=== PATIENT | female | born 1975 | race Caucasian/White ===

== ENCOUNTER 2022-01-22 16:47 | Outpatient (CLI) | payer OTHER, SELFPAY ==
--- NOTE | ~2022-01-22 | US_ITS ---
EXAMINATION: US pelvic complete w TV DATE: 01/22/2022 17:51 INDICATION: Irregular heavy menstrual bleeding. Patient taking progesterone. Comparison:No prior studies for comparison. TECHNIQUE: Multiple transabdominal and endovaginal sonographic images of the pelvis performed. FINDINGS: The uterus measures 13.5 x 11.4 x 11.8 cm. There is a large uterine mass consistent with fi broid which distorts and obscures the endometrium. This mass measures 8.9 x 8.7 x 7.8 cm. The right ovary is not visualized. The left ovary is normal measuring 3.5 x 2.6 x 4.7 cm with normal vascularity. There is no free fluid in the pelvis. There are no abnormal masses seen on either side. IMPRESSION: 1. Enlarged fibroid uterus with 8.9 cm fibroid distorting and obscuring the endometrium. Reviewed, dictated and finalized at location A. IMPRESSION: 1. Enlarged fibroid uterus with 8.9 cm fibroid distorting and obscuring the end ometrium.
== END 2022-01-22 16:48 | disposition home or self-care (01) ==
PROVIDERS: Visit Provider Physician Assistant
DX: N92.0 Excessive and frequent menstruation with regular cycle (principal); D25.9 Leiomyoma of uterus, unspecified
CPT/HCPCS: 76830; 76856

== ENCOUNTER 2022-08-16 09:55 | Emergency (ER) | payer OTHER, SELFPAY ==
[2022-08-16 10:05] VITALS: BP 128/73; PULSE 80; RESP 16; TEMP 37; O2SAT 100
--- NOTE | 2022-08-16 10:42 | ED.URI ---
HPI - URI/Sore Throat General Chief Complaint: Upper Respiratory Infection Stated Complaint: covid sx Time Seen by Provider: 08/16/22 10:43 Source: patient and RN notes reviewed Mode of arrival: ambulatory Limitations: no limitations History of Present Illness HPI Narrative: 47 y/o female presented for c/o nasal congestion, body ache, sore throat, cough. Onset yesterday. Endorses mother was ill but does not know what she had. Patient rates discomfort/pain 9/10. Took ibuprofen this morning. Denies sob, wheezing, n/v/d/f/c. Requesting covid testing for school. MD elicited complaint: cough Related Data Home Medications Medication Instructions Recorded Confirmed acetaminophen 325 mg tablet mg 08/16/22 docusate sodium 100 mg capsule mg PO 08/16/22 ibuprofen 400 mg tablet mg 08/16/22 Allergies Allergy/AdvReac Type Severity Reaction Status Date / Time clindamycin Allergy Rash Verified 08/16/22 10:46 Review of Systems Review of Systems: ROS per HPI PMFSH Past Medical History Medical History Chronic back pain Surgical History Surgical History H/O laminectomy History of hysterectomy Social History Social History Gender identity (if verbalized by the patient): Female Exam Narrative: GENERAL: mildly ill-appearing, nontoxic EYES: PERRLA, conjunctivae clear ENT: Mucous membranes moist. TMs pearly kingsley with dull light reflex bilaterally; no tragal tenderness. Oropharynx erythematous with tonsillar swelling 2+ without lesions or exudate, no drooling, no hoarseness, no trismus, uvula midline. No tripod positioning, muffled voice, soft palate or pharyngeal wall bulging NECK: Supple. No lymphadenopathy CHEST: Clear to auscultation, breath sounds equal. HEART: Regular rate and rhythm. No murmur heard. SKIN: Warm, dry, no rash. NEURO: Alert and oriented x3. PSYCH: Normal mood and affect Course Course Emergency Course: Patient is aware of diagnosis, understands and agrees to treatment plan. Anticipatory guidance given. Patient agrees to follow-up as directed and is aware of reasons to seek care at the emergency department. Portions of this record may have been created with voice recognition software Level of Care: Express Care Visit Vital Signs Vital signs: Vital Signs Temperature 98.6 F 08/16/22 10:05 Pulse Rate 80 08/16/22 10:05 Respiratory Rate 16 08/16/22 10:05 Blood Pressure 128/73 08/16/22 10:05 Pulse Oximetry 100 08/16/22 10:05 Oxygen Delivery Room Air 08/16/22 10:05 Temperature 98.6 F 08/16/22 10:05 Pulse Rate 80 08/16/22 10:05 Respiratory Rate 16 08/16/22 10:05 Blood Pressure 128/73 08/16/22 10:05 Pulse Oximetry 100 08/16/22 10:05 Oxygen Delivery Room Air 08/16/22 10:05 reviewed MDM - URI/Sore Throat MDM Narrative Medical decision making narrative: COVID negative. Results reviewed with patient. She is aware that she may need to retest, as symptoms just started yesterday. Will send prescription for amoxicillin based on PE, patient states she is strapped financially, and declines strep testing today. Declines flu test. 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 Advised supportive measures and signs/symptoms to go to the ER. Pt is appropriate for outpt treatment and f/u. Differential Diagnosis Differential diagnosis: Likely upper respiratory infection, otitis media, sinusitis, viral infection, influenza and pharyngitis Lab Data Labs: Lab Results 08/16/22 Range/Units 10:30 POC SARS CoV-2 Ag Negative (Negative) Discharge Plan Discharge Clinical Impression: Upper respiratory infection Qualifiers: URI type: unspecified URI Qualified Code(s): J06.9 - Acute upper respiratory infection, unspecified Patient Disposition: Home, Self-Care Condit
== END 2022-08-16 11:00 | disposition home or self-care (01) ==
PROVIDERS: Emergency Provider Nurse Practitioner Family; PCP Physician Assistant
DX: J06.9 Acute upper respiratory infection, unspecified (principal); Z20.822 Contact with and (suspected) exposure to COVID-19
CPT/HCPCS: 87426; 99213; C9803; G0463

== ENCOUNTER 2022-12-09 14:40 | Outpatient (CLI) | payer OTHER, SELFPAY ==
--- NOTE | ~2022-12-09 | MM_ITS ---
EXAMINATION: MM screening arsalan BI w jose HISTORY: Screening mammogram TECHNIQUE: Craniocaudal and mediolateral oblique 3-D tomosynthesis images were obtained and synthetic 2-D images were generated. CAD analysis was submitted and interpreted. COMPARISON: No prior mammogram is available for comparison at this institution. BREAST PARENCHYMAL COMPOSITION: There are scattered areas of fibroglandular density. FINDINGS: There is no evidence of suspicious mass, calcification, or architectural distortion to sugg est malignancy in either breast. There has been no suspicious interval change. IMPRESSION: 1. No mammographic evidence of malignancy. 2. Recommend routine screening mammography in one year. BI-RADS Category 1: Negative Reviewed, dictated and finalized at location A.
== END 2022-12-09 14:41 | disposition home or self-care (01) ==
LOC: ANHIMG 14:42
PROVIDERS: PCP Physician Assistant; Visit Provider Physician Assistant
DX: Z12.31 Encounter for screening mammogram for malignant neoplasm of breast (principal)
CPT/HCPCS: 77063; 77067

== ENCOUNTER 2022-12-26 12:18 | Emergency (ER) | payer OTHER, SELFPAY ==
[2022-12-26 12:22] VITALS: BP 118/65; PULSE 76; RESP 17; TEMP 36.6; O2SAT 100
--- NOTE | 2022-12-26 13:19 | ED.BACK ---
HPI - Back Pain/Injury General Chief Complaint: Back Pain/Injury Stated Complaint: back pain Time Seen by Provider: 12/26/22 12:37 History of Present Illness HPI Narrative: 47-year-old female with history of back pain presented emerged department for evaluation of increased right hip and back pain. Patient states that she does get intermittent back injections for her pain and is due for a pain injection in a few weeks. Patient states she woke up she felt that her back was 20 to few days ago. Patient reports that she is having intermittent pain that radiates down both legs and was having some intermittent numbness associated with the pain. Patient denies any weakness of the right leg. Patient denies any loss of bowel or bladder control. Related Data Home Medications Medication Instructions Recorded Confirmed acetaminophen 325 mg tablet mg 08/16/22 docusate sodium 100 mg capsule mg PO 08/16/22 ibuprofen 400 mg tablet mg 08/16/22 Allergies Allergy/AdvReac Type Severity Reaction Status Date / Time clindamycin Allergy Rash Verified 08/16/22 10:46 Review of Systems Review of Systems: All systems reviewed & are unremarkable except as noted in HPI and below PMFSH Past Medical History Medical History Chronic back pain Surgical History Surgical History H/O laminectomy History of hysterectomy Social History Social History Gender identity (if verbalized by the patient): Female Exam Narrative: APPEARANCE: Well appearing, no pain, no distress, well-nourished. HEAD: normocephalic, atraumatic. EYES: PERRLA/EOMI, conjunctivae clear. NOSE: Normal no drainage EARS:TMS clear with good light reflex. THROAT: Pharynx clear, no exudate. NECK: Supple. No adenopathy, no masses. RESPIRATORY: Airway patent, respirations nonlabored. Clear to auscultation bilaterally, no rales, rhonchi, wheezing. CARDIOVASCULAR: Regular rate and rhythm without murmurs rubs or gallops. ABDOMINAL: Soft, nontender, nondistended, normal bowel sounds MUSCULOSKELETAL: Right buttock tenderness to palpation. NEURO: Alert. Cranial nerves II through XII intact. Sensation intact SKIN: Warm, dry. Normal Color Course Course Emergency Course: 47-year-old female presented to the emergency department for evaluation of right hip pain. Patient is neurologically intact. Patient is being treated with medications for pain control including steroid. Patient was updated on the plan for treatment and patient does have close follow-up scheduled. Vital Signs Vital signs: Vital Signs Temperature 97.8 F 12/26/22 12:22 Pulse Rate 76 12/26/22 12:22 Respiratory Rate 17 12/26/22 12:22 Blood Pressure 118/65 12/26/22 12:22 Pulse Oximetry 100 12/26/22 12:22 Temperature 97.8 F 12/26/22 12:22 Pulse Rate 61 12/26/22 13:55 Respiratory Rate 15 12/26/22 13:55 Blood Pressure 108/67 12/26/22 13:55 Pulse Oximetry 98 12/26/22 13:55 MDM - Back Pain/Injury Differential Diagnosis Differential diagnosis: Likely lumbar radiculopathy and sciatica Discharge Plan Discharge Clinical Impression: Sciatica Patient Disposition: Home, Self-Care Condition: Stable Instructions: Antibiotic Form, Sciatica (ED), Back Pain (ED) Additional Instructions: Medrol Dosepak as directed until completed. Flexeril for muscle spasm. [place] as needed for additional pain control. Have close follow-up with your physicians as scheduled. If you have any worsening symptoms then call or return to the emergency department. Prescriptions: New methylprednisolone [Medrol (Vladimir)] 4 mg tablets,dose pack See Rx Instructions .ROUTE .COMPLEX Qty: 21 0RF Rx Instructions: orally per package directions cyclobenzaprine 10 mg tablet 10 mg PO BID PRN (Reason: muscle spasm
[2022-12-26] MEDS: HYDROmorphone HCL INJ (*CRX) 1 MG/ML SYR 0.5 MG IV PUSH (13:32)
[2022-12-26] MEDS: CYCLOBENZAPRINE HCL 10 MG TABLET PO (13:33)
[2022-12-26] MEDS: KETOROLAC 15 MG/ML VIAL (*BKC) IV PUSH (13:33)
[2022-12-26 13:55] VITALS: BP 108/67; PULSE 61; RESP 15; O2SAT 98
== END 2022-12-26 14:12 | disposition home or self-care (01) ==
PROVIDERS: Emergency Provider Emergency Medicine; PCP Physician Assistant
DX: M54.32 Sciatica, left side (principal); M54.31 Sciatica, right side
CPT/HCPCS: 96374; 96375; 99284; A9270; J1100; J1170; J1885

== ENCOUNTER 2023-01-06 05:00 | Inpatient (IN) | payer OTHER, SELFPAY ==
--- NOTE | ~2023-01-06 | CT_ITS ---
Noncontrast CT scan of the lumbar spine CLINICAL HISTORY: Back pain TECHNIQUE: Axial noncontrast imaging of the lumbar spine was performed. Sagittal and coronal reformat kira images were constructed. Dose reduction technique was used on this scan by utilizing automated ex posure control and iterative reconstruction technique. The dose-length product (DLP) was 878.60 mGy-c m. FINDINGS: No fracture identified. 4 mm retrolisthesis of L3 over L4 present. There is severe degenera tive disc narrowing at L3-L4. There is mild degenerative disc narrowing at L2-L3. At L1-L2, there is no disc bulge or herniation. No central canal stenosis or neural foraminal narrowi ng evident. At L2-L3, disc bulge and mild facet arthropathy result in probable mild to possibly moderate central canal stenosis. There is moderate left neural foraminal narrowing. Left neural foramen preserved. At L3-L4, disc bulge and mild facet arthropathy are present. Questionable small right paracentral dis c extrusion extending inferiorly. Possible minimal central canal stenosis. There is moderate to advan karlos bilateral neural foraminal narrowing. At L4-L5, there is disc bulge and mild facet arthropathy. Probable mild central canal stenosis. There is moderate bilateral neural foraminal narrowing. At L5-S1, there is diffuse disc bulge with mild facet arthropathy. No definite central canal stenosis . There is moderate left neural foraminal narrowing, and mild right neural foraminal narrowing. Paravertebral soft tissues are unremarkable. Impression: No fracture. 4 mm retrolisthesis of L3 over L4. [id number] degenerative spondylosis, as detailed above. Consider follow-up MR imaging for michel r evaluation. Reviewed, dictated and finalized at location . Impression: No fracture. 4 mm retrolisthesis of L3 over L4. [id number] degenerative spondylosis, as detailed above. Consider follow-u p MR imaging for better evaluation.
--- NOTE | ~2023-01-06 | XR_ITS ---
AP views of the pelvis Clinical history: Pain Findings: No acute fracture or dislocation is seen. Osseous alignment is anatomic. Bilateral hip and SI joint spaces are preserved. Soft tissues are unremarkable. Impression: No significant abnormality is seen. Reviewed, dictated and finalized at location M. Impression: No significant abnormality is seen.
--- NOTE | ~2023-01-06 | MR_ITS ---
MRI of the lumbar spine Clinical History: Back pain Technique: Axial T2-weighted images, and sagittal T1-weighted, T2-weighted, and T2 fat-sat images wer e acquired. Following intravenous administration of 16 cc MultiHance gadolinium, T1-weighted fat-sat imaging was performed in the axial and sagittal planes. Findings: No fracture identified. There is 2 mm retrolisthesis of L2 over L3. There is 3 mm retrolist hesis of L3 over L4. No suspicious bone marrow signal abnormality seen. At L1-L2, there is degenerative disc narrowing with small central disc protrusion. There is minimal f acet arthropathy. No spinal canal stenosis or neural foraminal narrowing. At L2-L3, there is degenerative disc narrowing with mild diffuse disc bulge and mild facet arthropath y. No opal central canal stenosis. There is mild to moderate left neural foraminal narrowing, and mi ld right neural foraminal narrowing. L3-L4, there is diffuse disc bulge with mild facet arthropathy. There is lateral recess stenosis bila terally, right worse than left, with moderate to severe bilateral neural foraminal narrowing, right w orse than left. At L4-L5, there is mild diffuse disc bulge. No central canal stenosis. There is moderate to advanced bilateral neural foraminal narrowing, right worse than left. At L5-S1, there is diffuse disc bulge with probable small superimposed disc extrusion extending infer iorly. There is minimal facet arthropathy. No central canal stenosis. There is moderate to severe lef t neural foraminal narrowing and mild to moderate right neural foraminal narrowing. Paravertebral soft tissues are unremarkable. No abnormal postcontrast enhancement identified. Impression: [id number]-[id number] degenerative spondylosis, as above. 2 mm retrolisthesis of L2 over L3. 3 mm retrolisthesis of L3 over L4. Reviewed, dictated and finalized at location . Impression: [id number] degenerative spondylosis, as above. 2 mm retrolisthesis of L2 over L3. 3 mm retrolisthesis of L3 over L4.
[2023-01-06 05:12] VITALS: BP 123/68; PULSE 64; RESP 14; TEMP 36.7; O2SAT 98
[2023-01-06] MEDS: KETOROLAC 30 MG/ML VIAL (*BKC) IV PUSH (05:52)
[2023-01-06] MEDS: MORPHINE SULFATE (*CRX) 2 MG/ML INJ IV PUSH (05:53)
--- NOTE | 2023-01-06 06:33 | ED.BACK ---
HPI - Back Pain/Injury General Chief Complaint: Back Pain/Injury <Gorge Rodney MD - Last Filed: 01/06/23 08:03> Stated Complaint: back pain <Gorge Rodney MD - Last Filed: 01/06/23 08:03> Time Seen by Provider: 01/06/23 05:18 <Gorge Rodney MD - Last Filed: 01/06/23 08:03> History of Present Illness HPI Narrative: This is a 47-year-old female with chronic history of low back pain, who was brought in by EMS from home for acute low back pain. Patient states she is undergoing steroid shots with an outside provider but missed her most recent 1. She complains of sharp low back pain radiating to the right leg with associated paresthesias and numbness in the right leg. She denies loss of bowel or bladder control or loss of sensation in the groin. <Gorge Rodney MD - Last Filed: 01/06/23 08:03> Related Data Home Medications: Home Medications Medication Instructions Recorded Confirmed acetaminophen 325 mg tablet mg 08/16/22 docusate sodium 100 mg capsule mg PO 08/16/22 ibuprofen 400 mg tablet mg 08/16/22 <Gorge Rodney MD - Last Filed: 01/06/23 08:03> Allergies/Adverse Reactions: Allergies Allergy/AdvReac Type Severity Reaction Status Date / Time clindamycin Allergy Rash Verified 01/06/23 09:45 <Gorge Rodney MD - Last Filed: 01/06/23 08:03> Review of Systems Review of Systems: CONSTITUTIONAL: Denies fever, chills, or sweats. CARDIOVASCULAR: Denies chest pain, palpitations, or edema. RESPIRATORY: Denies cough or dyspnea. GASTROINTESTINAL: Denies abdominal pain, nausea, vomiting, or diarrhea. GENITOURINARY: Denies dysuria or hematuria. SKIN: Denies rash or itching. MUSCULOSKELETAL: Low back pain denies joint pain, or myalgia. NEUROLOGIC: Right leg numbness and paresthesias denies headache, dizziness, or weakness. PSYCHIATRIC: Denies anxiety or depression. <Gorge Rodney MD - Last Filed: 01/06/23 08:03> PMF Past Medical History Medical History: Medical History Chronic back pain <Gorge Rodney MD - Last Filed: 01/06/23 08:03> Surgical History Surgical History: Surgical History H/O laminectomy History of hysterectomy <Gorge Rodney MD - Last Filed: 01/06/23 08:03> Family History Family History: Family History (System 01/06/23 @ 09:45 by Fernando Kilpatrick) Mother Hypertension Family history of elevated blood lipids Family history of diabetes mellitus in first degree relative Father Family history of elevated blood lipids Family history of diabetes mellitus in first degree relative <Gorge Rodney MD - Last Filed: 01/06/23 08:03> Social History Social History: Social History (System 01/06/23 @ 09:45 by Fernando Kilpatrick) Smoking status: Current every day smoker Alcohol intake: current Substance use: current Substance use type: marijuana Gender identity (if verbalized by the patient): Female <Gorge Rodney MD - Last Filed: 01/06/23 08:03> Exam Narrative: EXAMINATION OF ORGAN SYSTEMS/BODY AREAS: Constitutional: Vital signs per nursing GENERAL: Appears to be uncomfortable, every so often will have a full body spasm and she will cry out, however this is distractible and she will stop having the spasms while she sits up and talks to her mom HEAD: Normal with no signs of head trauma. EYES: EOMI, conjunctiva normal ENT: Hearing grossly intact LUNGS: Nonlabored breathing. HEART: [Regular rate and rhythm] ABD: [Soft], [nontender to palpation] EXT: Normal range of motion SKIN: [No rashes or lesions.] NEURO: [Alert and oriented x 3. Reports pain/tingling radiating down her RLE but she has normal ROM to her RLE as tested though somewhat limited by pain] PSYCH: Extremely anxious affect <Sadie Fabian MD - Last Filed: 01/06/23 11:18> Course Course Emergenc
[2023-01-06] MEDS: diazePAM (*CRX) 2 MG TABLET PO (06:34)
[2023-01-06 07:26] VITALS: BP 124/68; PULSE 84; RESP 20; O2SAT 99
[2023-01-06] MEDS: methylPREDNISolone SOD SUCC 40 MG VIAL IV PUSH (08:20)
[2023-01-06] MEDS: diazePAM INJ (*CRX) 10 MG/2 ML SYRINGE 5 MG IV PUSH (08:20)
[2023-01-06 09:19] LABS: Basophils Absolute Auto 0.1 K/mm3 (0.0-0.1); Basophils Percent Auto 0.7 % (0.2-1.2); Eosinophils Absolute Auto 0.1 K/mm3 (0-0.3); Eosinophils Percent Auto 0.9 % (0-4.4); Hemoglobin 14.2 g/dL (12.0-15.0); Immature Granulocyte Absolute 0.07 K/mm3 (0.00-0.031); Immature Granulocyte Percent A 0.5 % (0-0.5); Lymphocytes Absolute Auto 4.49 K/mm3 (0.9-3.2); Lymphocytes Percent Auto 29.8 % (18.3-44.2); Mean Corpuscular Hemoglobin 32.4 pg (26-34); Mean Corpuscular Volume 98.2 fl (80-100); Mean Platelet Volume 9.4 fl (7.4-10.4); Monocytes Absolute Auto 0.8 K/mm3 (0.1-0.6); Monocytes Percent Auto 5.5 % (2.6-8.5); Neutrophils Absolute Auto 9.4 K/mm3 (1.3-6.7); Neutrophils Percent Auto 62.6 % (45.5-73.1); Platelet Count Result 343 k/mm3 (150-375); Red Blood Count 4.38 M/mm3 (4.2-5.4); Red Cell Distribution Width 13.6 % (11.5-14.5); White Blood Count 15.1 K/mm3 (4.5-10.0)
[2023-01-06 09:34] LABS: Anion Gap 9 mmol/L (8-16); Blood Urea Nitrogen 20 mg/dL (7-17); Calcium 8.9 mg/dL (8.4-10.2); Carbon Dioxide 24 mmol/L (22-30); Chloride 106 mmol/L (98-107); Estimated CRCL calculation 121 ml/min; Estimated Glomerular Filt Rate > 60; Glucose 89 mg/dL (65-110); Potassium 3.5 mmol/L (3.4-5.0); Sodium 139 mmol/L (137-145)
[2023-01-06 09:38] LABS: Appearance Urine Cloudy (Clear); Bacteria Urine 1+ /hpf; Bilirubin Urine Negative (Negative); Blood Urine Negative (Negative); Color Urine Yellow (Yellow); Glucose Urine UA Negative (Negative); Ketones Urine Negative (Negative); Leukocyte Esterase Ur Negative LEU/UL (Negative); Nitrate Urine Negative (Negative); Protein Urine Negative (Negative); RBC Urine 0-2 /hpf (0-2); Specific Grav Ur 1.018 (1.001-1.035); Squamous Epithelial Cell Urine Moderate /hpf (Few); Urobilinogen Urine 0.2 mg/dL (<2.0); WBC Urine 0-5 /hpf
[2023-01-06 09:44] LABS: Add Urine Microscopic? YES
--- NOTE | 2023-01-06 11:18 | PCPTNOTE ---
received PT orders for eval. At 1118, pt still in ER and getting ready to move to floor; eval not completed at this time.
--- NOTE | 2023-01-06 11:36 | PC.NURSE ---
Patient arrived to unit. Screaming profanities at her mother at bedside. Cafeteria Operator called record center specialist Lani and patient continued to scream profanities calling her a bitch . Patient was informed that these types of behaviors and comments are unacceptable. Patient then screamed at record center specialist to get out of her room.
--- NOTE | 2023-01-06 11:44 | PC.NURSE ---
This patient, Dulce Maria Chandler, was admitted to Medical Room 347-. Patient/family oriented to hospital policies and general routines including ID bracelet, bed and alarms, visiting hours, pain management, procedures, bathroom and other care routines, personal items, smoking policy, room service/diet, and visiting hours. Information on how to activate the Rapid Response Team has been discussed. Patient/Family are encouraged to report perceived risks to care and to ask questions if they do not understand what they are told or what they should do.
--- NOTE | 2023-01-06 12:29 | PM.IMHP ---
H&P: HPI History of Present Illness Date/Time: 01/06/23 12:29 Chief Complaint: Back pain Narrative: This is a 47-year-old female patient who has a history of chronic lower back pain. The patient has received injections in the past she stated the last injection was on the 11th of this month. The patient was brought to the emergency room via EMS for this lower back pain. The patient was recently seen in the ER here on 12/26/2022. The patient was discharged with a Medrol Dosepak and Flexeril. The patient stated that the Flexeril helps some but she is out of Flexeril now. The patient stated that she has lower back pain that radiates to her right upper leg and then she has paresthesia to her right lower extremity. She has not to loss of bowel or bladder control. Her white count is noted to be 15.1. Her urinalysis is not concerning for a urinary tract infection. Pelvis x-ray was read as no significant abnormalities seen. Lumbar spine CT was read as no fracture 4 mm retrolisthesis L3 over L4. [id number] degenerative spondylosis. May consider MRI imaging. The patient was given morphine Toradol Valium, and Solu-Medrol in the emergency room. The patient is still crying and discomfort. The patient is being admitted to inpatient status on the date of service of 01/06/2023. Review of Systems Review of Systems: All systems reviewed & are unremarkable except as noted in HPI and below Constitutional: Constitutional: Reports as per HPI and Reports no additional constitutional complaints Eyes: Eyes: Reports as per HPI and Reports no additional eye complaints ENT: Reports system reviewed and no additional complaints, except as documented and Reports Normal hearing present Cardiovascular: Cardiovascular: Reports no additional cardiovascular complaints Respiratory: Respiratory: Reports no additional respiratory complaints and Reports no additional respiratory complaints Gastrointestinal: Gastrointestinal: Reports as per HPI and Reports no additional gastrointestinal complaints Musculoskeletal: Musculoskeletal: Reports no additional musculoskeletal complaints Integumentary/Breasts: Skin/Breast: Reports system reviewed and no additional complaints, except as docu and Reports as per HPI Neurologic: Reports system reviewed and no additional complaints, except as documented, Reports as per HPI and Reports Normal hearing present Psychiatric: Psychiatric: Reports no additional psychiatric complaints and Reports as per HPI Endocrine: Endocrine: Reports no additional endocrine complaints Hematologic/Lymphatic: Hematologic/Lymphatic: Reports no additional hematologic/lymphatic complaints Allergic/Immunologic: Allergic/Immunologic: Reports no additional allergic/immunologic complaints PMFSH Past Medical History Medical History Chronic back pain Chronic low back pain Surgical History Surgical History H/O laminectomy History of hysterectomy [facility] Family History Family History Mother Hypertension Family history of elevated blood lipids Family history of diabetes mellitus in first degree relative Father Family history of elevated blood lipids Family history of diabetes mellitus in first degree relative Social History Social History (Updated 01/06/23 @ 16:37 by Xiomara Law NP) Social History: The patient is and has 1 child. The patient is currently a full x2 in Factor 14. The patient has quit smoking 6 months ago. She occasionally uses marijuana. She alcohol use. Code status full code Smoking packs per day: 0.10 Smoking cigarettes per day: 2.0 Years smoked: 10 Smoking pack-years: 1.00 Smoking status: Current every day smoker Tobacco type: cigarettes Second hand tobacco smoke exposure: No Alcohol intake:
[2023-01-06 14:14] VITALS: BMI 28.3
[2023-01-06] MEDS: CYCLOBENZAPRINE HCL 10 MG TABLET PO ×2 (14:31→23:26)
[2023-01-06] MEDS: HYDROmorphone HCL INJ (*CRX) 1 MG/ML SYR 0.5 MG IV PUSH ×2 (14:31→17:38)
--- NOTE | 2023-01-06 14:41 | PCOTNOTE ---
Attempted OT evaluation. Per nursing, patient not appropriate today due to pain. Will continue to attempt.
[2023-01-06 14:59] VITALS: BP 120/75; PULSE 75; RESP 16; TEMP 36.6; O2SAT 99
[2023-01-06] MEDS: methylPREDNISolone SOD SUCC 125 MG VIAL 80 MG IV PUSH ×2 (17:32→23:25)
[2023-01-06 20:17] VITALS: BP 116/70; PULSE 63; RESP 18; TEMP 36.8; O2SAT 97
[2023-01-06] MEDS: HYDROcodone/acetaminophen (*CRX) 5-325 MG TABLET 1 TAB PO (20:42)
[2023-01-06] MEDS: KETOROLAC 15 MG/ML VIAL (*BKC) IV PUSH (23:26)
[2023-01-07 03:58] VITALS: BP 121/69; PULSE 73; RESP 16; TEMP 36.9; O2SAT 100
[2023-01-07] MEDS: KETOROLAC 15 MG/ML VIAL (*BKC) IV PUSH (05:16)
[2023-01-07] MEDS: methylPREDNISolone SOD SUCC 125 MG VIAL 80 MG IV PUSH ×2 (05:16→12:29)
--- NOTE | 2023-01-07 08:47 | PC.NURSE ---
Pt asked for bed chavez. Chavez given. Pt screaming and yelling. This nurse walked in to ask if she was ok. Pt screaming saying she cant communicate with me. Pt told me to get out and leave her alone.
[2023-01-07 08:48] VITALS: O2SAT 99
[2023-01-07] MEDS: CYCLOBENZAPRINE HCL 10 MG TABLET PO (09:28)
[2023-01-07] MEDS: HYDROmorphone HCL INJ (*CRX) 1 MG/ML SYR 0.5 MG IV PUSH ×2 (09:31→12:32)
--- NOTE | 2023-01-07 15:08 | PM.DS ---
DS: Admitting Diagnosis Discharge Date 01/07/2023 Admitting Diagnosis Back pain DS: Discharge Diagnosis Discharge Diagnosis (1) Lumbar radiculopathy: Code(s): M54.16 - Radiculopathy, lumbar region Status: Acute Assessment and Plan: The patient states that she has had lumbar surgery in the past. Mom her CT was read as the followingNo fracture. 4 mm retrolisthesis of L3 over L4. Lels-bs-ejzgixxa degenerative spondylosis, as detailed above. Consider follow-up MR imaging for better evaluation. An MRI has been ordered. Neurosurgery has been consulted as well. The patient stated that she is gotten a steroid injection on the of this month. The patient has been on [place] Flexeril at home. Will continue with [place] for lesser pain and Dilaudid for more severe pain the patient had a Medrol Dosepak that she had finished. Continue Solu-Medrol. PT and OT have been ordered but the patient was refusing it she states that she is in too much pain. Her feet are cold to touch but she has good pedal pulses. The patient stated that she has not been incontinent of bowel or bladder. Physical therapy was ordered for the patient but she stated that she is in too much pain to be able to perform with physical therapy occupational therapy today. Continue with Flexeril. She has previously had a history of laminectomy. She stated the surgery was performed at [facility]. I will attempt to get records from [facility]. DS: Summary Hospital Course Reason for hospitalization: Back pain Narrative: This is a 47-year-old female patient who has a history of chronic lower back pain.? The patient has received injections in the past she stated the last injection was on the of this month.? The patient was brought to the emergency room via EMS for this lower back pain.? The patient was recently seen in the ER here on 12/26/2022.? The patient was discharged with a Medrol Dosepak and Flexeril.? The patient stated that the Flexeril helps some but she is out of Flexeril now.? The patient stated that she has lower back pain that radiates to her right upper leg and then she has paresthesia to her right lower extremity.? She has not to loss of bowel or bladder control.? Her white count is noted to be 15.1.? Her urinalysis is not concerning for a urinary tract infection.? Pelvis x-ray was read as no significant abnormalities seen.? Lumbar spine CT was read as no fracture 4 mm retrolisthesis L3 over L4.? Cbzm-gj-kbywkivt degenerative spondylosis.? May consider MRI imaging.? The patient was given morphine Toradol Valium, and Solu-Medrol in the emergency room.? The patient is still crying and discomfort.? The patient is being admitted to inpatient status on the date of service of 01/06/2023. Hospital Course: There are no acute injury and patient clinical symptoms are stable patient to follow-up with her workmen comp, physician further evaluation and management Time Spent with Patient Time attestation: Total time spent providing and/or coordinating discharge services: Exam Narrative: Patient is comfortable, NAD HEENT: eyes are clear and none icteric LUNGS: Normal respiratory effort ABD: Not distended Lower extremities: no edema SKIN: nonjaundiced Neuro: grossly intact. Discharge Plan Discharge Attending physician on discharge: Amrit Callejas Consulting providers: Xiomara Law; Florentino Amanda Discharging Clinician: Amrit Callejas Patient Disposition: Home, Self-Care Activity: as tolerated Diet: heart healthy Discharge Instructions: Patient to follow with her spine surgeon, pain management and her primary care provider as soon as possible, patient is instructed if any symptoms redeveloped to go to nearest emergency department. Patient Instructions: Antibiotic Form, Hydrocodone/Acetaminophen (By mouth), Prednisone (By mouth), Cyclobenzaprine (By mouth), Gabapentin (By mouth), Pain Management (DC) St
[2023-01-07] MEDS: HYDROcodone/acetaminophen (*CRX) 5-325 MG TABLET 1 TAB PO (15:50)
== END 2023-01-07 16:30 | disposition home or self-care (01) | DRG 552 ==
LOC: ANHED 08:12 → ANH3MED 11:02
PROVIDERS: Admitting Provider Chiropractor; Emergency Provider Emergency Medicine; PCP Physician Assistant; Visit Provider Family Medicine
DX: M54.16 Radiculopathy, lumbar region (principal); F17.210 Nicotine dependence, cigarettes, uncomplicated
CPT/HCPCS: 36415; 72131; 72158; 72170; 80048; 81001; 81025; 85025; 96374; 96375; 99285; A9270; A9577; J1170; J1885; J2270; J2920; J2930; J3360

== ENCOUNTER 2024-04-20 13:26 | Outpatient (CLI) | payer OTHER, SELFPAY ==
--- NOTE | ~2024-04-20 | MR_ITS ---
EXAMINATION: MR knee LT wo con DATE: 04/20/2024 14:02 INDICATION: Left knee pain TECHNIQUE: Magnetic resonance imaging (MRI) of the left knee was performed without intravenous contra st. Sequences included coronal PD-weighted FSE, coronal PD-weighted FS FSE, sagittal T2-weighted FSE , sagittal PD-weighted FS FSE and axial PD weighted fat saturated FSE. COMPARISON: None. FINDINGS: Medial compartment: There is medial extrusion of the medial meniscal body. Complex medial meniscal tear with radial tear plane at the lateral side of the posterior horn and with longitudinal horizontal tear plane extending to the inferior articular surface at the meniscal body. There is partial thickness chondral ulcerati on right with chondral surface irregularity at the anterior to central weightbearing medial femoral c ondyle. Additional deep chondral ulceration involving greater than 50% the cartilage thickness at the anteromedial aspect of the medial tibial plateau. There is subarticular edema-like signal change und erlying the both regions of chondral ulceration. There is a small region of subarticular low signal i ntensity along the medial rim of the anterior weightbearing medial femoral condyle which could repres ent either versus subcortical stress fracture related to altered weight distribution resulting from m enstrual tear along the medial rim of the anterior weightbearing medial femoral condyle. Lateral compartment: Lateral meniscus is normal. Partial-thickness chondral fissuring without degenerative subchondral jody nges at the anterior weightbearing lateral femoral condyle and central aspect of the lateral tibial p lateau. Patellofemoral compartment: Subarticular edema-like signal change underlying a deep chondral fissure at the central aspect of the patellar apical ridge. Small region of shallow chondral fissuring at the lateral aspect of the later al patellar facet. Shallow chondral fissuring with subtle chondral surface regularity along the media l patellar facet and inferolateral aspect of the medial trochlea. Ligaments and tendons: Anterior and posterior cruciate ligaments are normal. The fibular collateral ligament complex is norm al. There is increased fluid signal along the deep and superficial margins of the normal-appearing pr oximal medial collateral ligament which could be reactive related to the medial meniscal tear or pote ntial subcortical fracture and medial femoral condyle although differential would include low-grade m edial collateral ligament sprain in the setting of recent trauma. The extensor mechanism is normal. T he visualized medial and lateral hamstring tendons as well as the iliotibial band are normal. Fluid: Small left knee joint effusion at the suprapatellar pouch. No loose osteochondral bodies identified. Osseous/other: Bone alignment is normal. No pathologic marrow replacing process. IMPRESSION: 1. Complex medial meniscal tear including a radial tear at the posterior horn and longitudinal horizo ntal tear at the medially extruded body. 2. Tricompartmental osteoarthritis, moderate severity in the medial and mild in the patellofemoral co mpartments, both with moderate and high-grade chondromalacia and mild at the lateral compartment with moderate grade chondromalacia. 3. There is prominent marrow edema in the medial femoral condyle centered around a small region of cardozo barticular low signal intensity along the medial rim of the anterior weightbearing medial femoral con dyle which could represent either degenerative eburnation versus subarticular stress fracture related to altered stress distribution resulting from the meniscal tear and extrusion. 4. Increased fluid signal in the proximal aspect of the normal-appearing medial collateral ligament m ost likely related to the previous noted findings in medial compartment although differential would i nclude low-grade neoplasm ligament sprain in the appropriate clinical setting. 5. Likely reactive small left knee joint effusion. Reviewed, dictated and finalized at location A. IMPRESSION: 1. Complex medial meniscal tear including a radial tear at the posterior horn a nd longitudinal horizontal tear at the medially extruded body. 2. Tricompartmental osteoarthritis, moderate severity in the medial and mild in the patellofemoral compartments, both with moderate and high-grade chondromala janusz and mild at the lateral compartment with moderate grade chondromalacia. 3. There is prominent marrow edema in the medial femoral condyle centered aroun d a small region of subarticular low signal intensity along the medial rim of t he anterior weightbearing medial femoral condyle which could represent either d egenerative eburnation versus subarticular stress fracture related to altered s tress distribution resulting from the meniscal tear and extrusion. 4. Increased fluid signal in the proximal aspect of the normal-appearing medial collateral ligament most likely related to the previous noted findings in medi al compartment although differential would include low-grade neoplasm ligament sprain in the appropriate clinical setting. 5. Likely reactive small left knee joint effusion.
== END 2024-04-20 13:27 | disposition home or self-care (01) ==
PROVIDERS: PCP Physician Assistant; Visit Provider Physician Assistant
DX: S83.232A Complex tear of medial meniscus, current injury, left knee, initial encounter (principal); X58.XXXA Exposure to other specified factors, initial encounter; M17.12 Unilateral primary osteoarthritis, left knee
CPT/HCPCS: 73721

== ENCOUNTER 2024-05-11 13:37 | Outpatient (CLI) | payer OTHER, SELFPAY ==
--- NOTE | 2024-05-11 | ECG_ITS ---
Test Date: 2024-05-11 14:19:20 Measurements Intervals [place] Rate: 80 P: 50 NV: 144 QRS: 39 QRSD: 101 T: 23 QT: 378 QTc: 438 Interpretive Statements SINUS RHYTHM LOW QRS VOLTAGE IN PRECORDIAL LEADS BORDERLINE ECG No previous ECG available for comparison Electronically Signed On 05-11-2024 14:26:16 [employer]OCK [employer]IPPER by Jaxon Lopez D.O.
[2024-05-11 14:46] LABS: Basophils Absolute Auto 0.1 K/mm3 (0.0-0.1); Basophils Percent Auto 1.1 % (0.2-1.2); Eosinophils Absolute Auto 0.2 K/mm3 (0-0.3); Eosinophils Percent Auto 1.4 % (0-4.4); Hematocrit 41.3 % (37.0-47.0); Hemoglobin 13.9 g/dL (12.0-15.0); Immature Granulocyte Absolute 0.03 K/mm3 (0.00-0.031); Immature Granulocyte Percent A 0.3 % (0-0.5); Lymphocytes Absolute Auto 4.27 K/mm3 (0.9-3.2); Lymphocytes Percent Auto 40.4 % (18.3-44.2); Mean Corpuscular HGB Conc 33.7 g/dl (32-36); Mean Corpuscular Hemoglobin 32.6 pg (26-34); Mean Corpuscular Volume 96.9 fl (80-100); Mean Platelet Volume 9.3 fl (7.4-10.4); Monocytes Absolute Auto 0.6 K/mm3 (0.1-0.6); Neutrophils Absolute Auto 5.4 K/mm3 (1.3-6.7); Neutrophils Percent Auto 50.8 % (45.5-73.1); Platelet Count Result 457 k/mm3 (150-375); Red Blood Count 4.26 M/mm3 (4.2-5.4); Red Cell Distribution Width 12.8 % (11.5-14.5); White Blood Count 10.6 K/mm3 (4.5-10.0)
[2024-05-11 15:00] LABS: Alanine Aminotransferase 19 U/L (6-35); Albumin Level 4.7 g/dL (3.5-5.1); Alkaline Phosphatase 107 U/L (38-126); Anion Gap 8 mmol/L (4-12); Aspartate Amino Transferase 27 U/L (14-36); Bilirubin,Total 0.3 mg/dL (0.2-1.3); Blood Urea Nitrogen 15 mg/dL (7-17); Calcium 9.7 mg/dL (8.4-10.2); Carbon Dioxide 25 mmol/L (22-30); Chloride 105 mmol/L (98-107); Estimated Glomerular Filt Rate > 60; Glucose 95 mg/dL (65-110); Potassium 4.3 mmol/L (3.4-5.0); Sodium 138 mmol/L (137-145)
== END 2024-05-11 13:38 | disposition home or self-care (01) ==
LOC: ANHLAB 13:40
PROVIDERS: PCP Physician Assistant; Visit Provider Physician Assistant
DX: Z01.818 Encounter for other preprocedural examination (principal)
CPT/HCPCS: 36415; 80053; 85025; 93005

== ENCOUNTER 2024-06-10 01:35 | Day surgery (SDC) | payer OTHER, SELFPAY ==
[2024-06-02 13:42] VITALS: BMI 31.6
--- NOTE | 2024-06-02 13:52 | PC.NURSE ---
Report to the Outpatient Waiting Room, entrance under the green pavilion located off [facility], at time _0830_ on date _[id number]_. Planned Procedure Time: _1030_.? Time changes happen often and if your time is changed the preop area will call you the afternoon before. - You and your visitor will be asked to self-screen and do not enter if you have any COVID symptoms. Please call surgeon if you need to reschedule. - A mask is optional within the hospital at this time. Patients may have clear liquids (water, carbonated beverages, clear teas, apple juice) until 3 hours prior to surgery with a maximum of 20 ounces. - No food from midnight until time of surgery and no smoking. This includes no chewing gum, candy or mints. Take only the following medications with a SIP of water on the morning of surgery: Acetaminophen if needed. DO NOT STOP ANY OF YOUR OTHER PRESCRIPTION MEDICATIONS PRIOR TO SURGERY EXCEPT THE FOLLOWING Medications to discontinue per physician ___Ibuprofen per Dr Tiwari.. Acetaminophen OK____ Date to take last dose Please no make-up, nail turkish, hairspray, perfume, deodorant, or body powder the day of surgery.? No jewelry (including any body piercings) or valuables the day of surgery, leave them at home.? Please take a shower or bath the night before, or the morning of, surgery with an antibacterial soap.? Wear comfortable, loose fitting clothing.? . - Jewelry must be removed prior to entering the operating room.? Rings and piercings that are not removed may be cut off. - The hospital will not accept responsibility for valuables.? - Please leave all valuables, including medications, at home the day of surgery. If you are going home after surgery, a licensed screw driver operator must drive you home.? - NO public transportation without another adult if you receive anesthesia. - We recommend that an adult stay with you for 24 hours following discharge. - We also recommend that you do not drive, make important decision, drink alcoholic beverages, or take any drugs that were not prescribed by your health care provider for at least 24 hours after your discharge time. Follow any additional instructions given to you from your surgeon. Telephone instructions given to __Dulce Maria_and asked if any additional questions and then verbalized understanding. Patient advised to call surgeon office or pre surgery nurse liaison [phone] if any additional questions.
[2024-06-10] VITALS (9 sets, daily range): BP systolic 104–143; BP diastolic 69–92; PULSE 64–94; RESP 14–20; TEMP 36.4–36.8; O2SAT 97–100; BMI 34.8
--- NOTE | 2024-06-10 07:21 | WPDHPUPDATE1 ---
History and Physical Update Update Date/Time: 06/10/24 07:21 History and Physical has been reviewed, including an updated exam of the patient. There are NO changes in the patient's condition. Risks, benefits, and alternatives have been discussed and questions answered. Patient agrees to proceed with procedure.
[2024-06-10] MEDS: ACETAMINOPHEN 500 MG TABLET 1000 MG PO (08:55)
[2024-06-10] MEDS: CELECOXIB 200 MG CAPSULE PO (08:55)
[2024-06-10] MEDS: LACTATED RINGERS 1,000 ML 30 ML IV CONT ×2 (09:30→13:05)
--- NOTE | 2024-06-10 10:10 | P.PNAN_ITS ---
Anes - Initial Pre Proc Eval Procedure: Operation Date: 06/10/24 10:30 Proposed Procedures p Left Knee Arthroscopy, Proceed As Indicated - Shawn Tiwari MD Date/Time: 06/10/24 10:10 Surgeon: Shawn Tiwari MD Pre Op Diagnosis: Medial Meniscus Tear Lt Knee Patient Data Age: 49 Gender: F Height: 1.65 m Weight: 95 kg Last Vital Signs Temp 36.8 C 06/10/24 09:40 Pulse 74 06/10/24 09:40 Resp 18 06/10/24 09:40 BP 104/92 H 06/10/24 09:40 Pulse Ox 99 06/10/24 09:40 Allergies Allergy/AdvReac Type Severity Reaction Status Date / Time clindamycin Allergy Rash Verified 06/10/24 09:49 Home Medications ?Medication ?Instructions ?Recorded ?Confirmed ?Type acetaminophen 325 mg tablet 325 mg PO PRN PRN Pain 08/16/22 06/06/24 History ibuprofen 400 mg tablet 400 mg PO PRN PRN Pain 08/16/22 06/06/24 History conjugated estrogens 0.625 mg 0.625 mg PO DAILY 05/10/24 06/10/24 History tablet (Premarin) chlorhexidine gluconate 4 % 1 applic topical ONCE #237 mL 06/03/24 06/10/24 Rx topical liquid (Hibiclens) aspirin 325 mg tablet 325 mg PO BID 4 weeks #56 tabs 06/06/24 06/06/24 Rx Patient hx anesthesia problems: none Family hx anesthesia problems: none Results Review: All pre-operative results and documents have been reviewed as part of the pre- operative evaluation. [facility] Past Medical History Medical History Medial meniscus tear Chronic low back pain Chronic back pain Surgical History Surgical History History of hysterectomy [facility] H/O laminectomy Family History Family History Mother Hypertension Family history of elevated blood lipids Family history of diabetes mellitus in first degree relative Father Family history of elevated blood lipids Family history of diabetes mellitus in first degree relative Social History Social History Social History: The patient is and has 1 child. The patient is currently a full x2 in [employer]. The patient has quit smoking 6 months ago. She occasionally uses marijuana. She alcohol use. Code status full code Smoking packs per day: 0.10 Smoking cigarettes per day: 2.0 Years smoked: 10 Smoking pack-years: 1.00 Smoking status: Former smoker Tobacco type: cigarettes Second hand tobacco smoke exposure: No Smoking end date: 04/22/24 Additional smoking assessment comments: chewing nicotene gum at present. Alcohol intake: current Substance use: current Substance use type: marijuana Lack of Transportation: No Lack of Food: Never True Current Housing: I Have Housing Concerned About Future Housing: No Difficulty Paying Gas/Electric Bills: No Difficulty Paying for Meds: No Currently Unemployed: No Education: High School Diploma/GED Difficulty w/ Childcare or Family Care: No Living arrangements: with family Gender identity (if verbalized by the patient): Female Spiritual care concerns: No Anes - Eval Final PreProcedure Day of Procedure 06/10/24 10:10 Patient weight: obese Heart: regular rate and rhythm Lungs: clear to auscultation Airway: Mallampati scale class II Neurological: alert and oriented Last oral intake: >/= 8 hours ASA classification: II Emergent: no Anesthetic plan: proceed Anesthesia type and monitoring: general GIVS and standard monitoring Results Review: All pre-operative results and documents have been reviewed as part of the pre- operative evaluation. Informed Consent: The patient's anesthetic plan and its attendant risks and benefits were discussed with the patient/family/POA. Questions were solicited and answers provided to the satisfaction of the patient/family/POA.
[2024-06-10] MEDS: ceFAZolin 2 GM/D5W 50 ML 2 GM/50 ML BAG IVPB (11:00)
[2024-06-10] MEDS: BUPivacaine HCL 0.5% 10 ML AMP 30 ML INFILTRATE (11:18)
--- NOTE | 2024-06-10 12:37 | W.PM.PROC2 ---
Procedure Note - Detailed Date of Procedure 06/10/24 Pre-op Diagnosis Medial Meniscus Tear Lt Knee Post-op Diagnosis Same Procedure Performed LEFT KNEE SCOPE Surgeon Shawn Tiwari MD Anesthesia General Description of Procedure PATIENT WAS TAKEN TO THE OR. LEFT LEG WAS PREPPED AND DRAPED STERILE. TROCARS WERE PLACED IN THE USUAL FASHION. CAMERA WAS INTRODUCED. THERE WAS CHONDROMALACIA TO THE PATELLA FEMORAL JOINT. THERE WAS A LOT OF SYNOVITIS IN ALL COMPARTMENTS. THE MEDIAL COMPARTMENT SHOWED CHONDROMALACIA TO THE MEDIAL FEMORAL CONDYLE. A SHAVER WAS USED TO PREFORM A CHONDROPLASTY. THERE WAS A COMPLEX MEDIAL MENISCUS TEAR. THE TEAR WAS RESECTED WITH A BITER AND A SHAVER DOWN TO A SMOOTH BASE. THE ACL WAS INTACT. THE LATERAL MENISCUS WAS NOT TORN. THE LATERAL COMPARTMENT HAD A CHONDRAL DEFECT. THE DEFECT HAD NO EXPOSED BONE. CHONDROPLASTY WAS PREFORMED. A SYNOVECTOMY WAS PREFORMED WELL. THE PATELLO FEMORAL JOINT UNDERWENT CHONDROPLASTY. THERE WAS GRADE 2 CHONDROMALACIA IN PART OF THE TROCHLEA AND PART OF THE PATELLA. SYNOVECTOMY WAS PREFORMED IN THE SUPERIOR MEDIAL COMPARTMENT. THE WOUNDS WERE APPROXIMATED WITH 4.0 NYLON. STERILE DRESSING WAS APPLIED. PATIENT WAS EXTUBATED. Estimated Blood Loss 5 Complications No immediate complications Condition Stable Disposition PACU
[2024-06-10] MEDS: fentaNYL CITRATE INJ (*CRX) 100 MCG/2 ML VIAL 25 MCG IV PUSH ×4 (12:42→12:51)
[2024-06-10] MEDS: oxyCODONE HCL (*CRX) 5 MG TAB IR PO (13:48)
== END 2024-06-10 14:19 | disposition home or self-care (01) ==
PROVIDERS: PCP Physician Assistant; Visit Provider Orthopaedic Surgery
PROC: (CPT 29870; principal; 2024-06-10 10:30)
DX: M23.332 Other meniscus derangements, other medial meniscus, left knee (principal); M65.862 Other synovitis and tenosynovitis, left lower leg; M22.42 Chondromalacia patellae, left knee; Z87.891 Personal history of nicotine dependence; F12.90 Cannabis use, unspecified, uncomplicated; E66.9 Obesity, unspecified; Z68.34 Body mass index [BMI] 34.0-34.9, adult
CPT/HCPCS: 29881; 29876; A9270; J0690; J1100; J2003; J2250; J2405; J2704; J3010; J7120